=== PATIENT | female | born 1955 | race Caucasian/White ===

== ENCOUNTER 2017-10-23 19:25 | Emergency (ER) | payer OTHER ==
[2017-10-23 21:34] LABS: Absolute Lymphocytes (CBC) 3.3 K/uL (0.7-4.9); Absolute Monocytes 1.1 K/uL (0.1-1.3); Absolute Neutrophil 5.8 K/uL (1.8-8.0); Basophils % 0.9 % (0-1.3); Eosinophils % 2.2 % (0-4.4); Hematocrit 35.8 % (36.0-45.0); Lymphocytes % 31.8 % (15.3-44.8); MCH 26.8 pg (27.0-35.0); MCV 80.2 fL (80-100); MPV 9.8 fL (7.6-11.3); Monocytes % 10.2 % (3.3-12.3); RBC Red Blood Cell Count 4.47 M/uL (3.86-4.86)
[2017-10-23 21:40] LABS: Protime INR 0.92
[2017-10-23 21:42] LABS: Urine Blood NEGATIVE (NEG); Urine Glucose NEGATIVE (NEG); Urine Protein NEGATIVE (NEG); Urine Specific Gravity 1.025 (1.005-1.030)
[2017-10-23 21:55] LABS: ALT/SGPT 20 U/L (12-78); AST/SGOT 16 U/L (15-37); Albumin 4.3 g/dL (3.4-5.0); Alkaline Phosphatase 128 U/L (45-117); BUN Blood Urea Nitrogen 14 mg/dL (7-18); Bicarbonate 31 mmol/L (21-32); Bilirubin Direct < 0.1 mg/dL (0-0.2); Bilirubin Total 0.2 mg/dL (0.2-1.0); Glucose Level 92 mg/dL (74-106); Magnesium 2.7 mg/dL (1.8-2.4); NT PRO-BNP 117 pg/mL (<125); Potassium 3.9 mmol/L (3.5-5.1); Protein, Total 7.9 g/dL (6.4-8.2); Sodium Level 141 mmol/L (136-145)
--- NOTE | 2017-10-23 22:08 | RAD REPORT ---
EXAM DESCRIPTION: VAS - Extremity Venous Uni Ltd - 10/23/2017 9:54 pm CLINICAL HISTORY: PAIN Leg swelling and edema. COMPARISON: No comparisons FINDINGS: Right lower extremity venous system was interrogated with Doppler technique. Normal flow, compressibility and augmentation was noted. There is no DVT present. IMPRESSION: No evidence of right lower extremity deep venous thrombosis.
--- NOTE | 2017-10-23 22:09 | RAD REPORT ---
EXAM DESCRIPTION: VAS - Lower Extremity Arterial Bilat - 10/23/2017 9:54 pm CLINICAL HISTORY: leg pain, numbness COMPARISON: No comparisons TECHNIQUE: Bilateral lower extremity arterial Doppler examination was performed with jose shen FINDINGS: Triphasic and biphasic waveforms are seen throughout both lower extremity arterial systems to the lev el of the dorsalis pedis arteries. No significant flow abnormality or vessel occlusion seen. IMPRESSION: No evidence of significant peripheral vascular disease.
--- NOTE | 2017-10-23 22:13 | RAD REPORT ---
EXAM DESCRIPTION: RAD - Chest Pa And Lat (2 Views) - 10/23/2017 10:03 pm CLINICAL HISTORY: SOB Chest pain. COMPARISON: No comparisons TECHNIQUE: PA and lateral views of the chest were obtained. FINDINGS: The lungs are hyperexpanded compatible with COPD. The heart is upper limit of normal in si ze. Old right-sided rib fractures noted. No acute fracture evident. Cholecystectomy clips seen. IMPRESSION: COPD without acute process identified.
--- NOTE | 2017-10-23 23:16 | ER ---
Nurse's Notes [facility] Name: Brea England Age: 62 yrs Sex: Female : 1955 Arrival Date: 10/23/2017 Time: 19:27 Bed 4 Private MD: Rosie Tam H Diagnosis: Right Leg Pain And Swelling;Dizziness;COPD Presentation: 10/23 19:40 Presenting complaint: Patient states: "I fell a year ago and had a knot on my leg lk1 (right), the knot has moved and I am having numbness and swelling on my leg for about a month now.". Transition of care: patient was not received from another setting of care. Onset of symptoms was September 19, 2017. Risk Assessment: Do you want to hurt yourself or someone else? Patient reports no desire to harm self or others. Initial Sepsis Screen: Does the patient meet any 2 criteria? No. Patient's initial sepsis screen is negative. Does the patient have a suspected source of infection? No. Patient's initial sepsis screen is negative. Care prior to arrival: None. 19:40 Method Of Arrival: Ambulatory lk1 19:40 Acuity: MARCOS 4 lk1 Historical: - Allergies: 19:46 Sulfa (Sulfonamide Antibiotics); lk1 - PMHx: 19:46 Sleep Apnea; Hypertension; MS; cancer- thyroid; Depression; lk1 - PSHx: 19:46 sinus surgery; Hysterectomy; Cholecystectomy; right hip; lk1 - Immunization history:: Adult Immunizations up to date. - Social history:: Smoking status: Patient uses tobacco products, smokes two packs cigarettes per day. - Ebola Screening: : No symptoms or risks identified at this time. - Family history:: not pertinent. - Hospitalizations: : No recent hospitalization is reported. Screenin:14 Abuse screen: Denies threats or abuse. Nutritional screening: No deficits noted. ea Tuberculosis screening: No symptoms or risk factors identified. Fall Risk None identified. Assessment: 21:23 General: Appears in no apparent distress. Behavior is calm, cooperative, appropriate ea for age. Pain: Pain: Complains of pain in right leg Pain currently is 8 out of 10 on a pain scale. Quality of pain is described as aching. 21:23 Neuro: Level of Consciousness is awake, alert, obeys commands, Oriented to person, ea place, time, situation. Cardiovascular: Patient's skin is warm and dry. Respiratory: Airway is patent Respiratory effort is even, unlabored, Respiratory pattern is regular, symmetrical. GI: No signs and/or symptoms were reported involving the gastrointestinal system. : No signs and/or symptoms were reported regarding the genitourinary system. EENT: No signs and/or symptoms were reported regarding the EENT system. Derm: Skin is pink, warm \\T\\ dry. redness and swelling noted to right lower leg. Musculoskeletal: Circulation, motion, and sensation intact. 22:24 Reassessment: Patient and/or family updated on plan of care and expected duration. Pain ea level reassessed. Patient is alert, oriented x 3, equal unlabored respirations, skin warm/dry/pink. 23:27 Reassessment: Patient and/or family updated on plan of care and expected duration. Pain ea level reassessed. Patient is alert, oriented x 3, equal unlabored respirations, skin warm/dry/pink. Discharge instructions given to patient, verbalized the understanding of instruction. Vital Signs: 19:46 BP 172 / 99; Pulse 91; Resp 16; Temp 98.0(TE); Pulse Ox 99% on R/A; Weight 61.23 kg lk1 (R); Height 5 ft. 2 in. (157.48 cm) (R); Pain 7/10; 21:39 BP 191 / 90; Pulse 85; Resp 18; Pulse Ox 99% on R/A; ea 23:28 BP 178 / 80; Pulse 80; Resp 18; Temp 98(O); Pulse Ox 99% on R/A; Pain 0/10; ea 19:46 Body Mass Index 24.69 (61.23 kg, 157.48 cm) lk1 ED Course: 19:27 Patient arrived in ED. am2 19:27 Rosie Tam DO is Private Physician. am2 19:44 Triage completed. lk1 19:49 Arm band placed on right wrist. lk1 20:32 Regan Wiley MD is Attending Physician. wa 20:59 Savage العلي, ISIDRA is Primary Nurse. fu 21:10 Initial lab(s) drawn, by nh, sent to lab. Inserted saline lock: 20 gauge in right cc antecubital area, using aseptic technique. Blood collected. 21:14 Patient has correct armband on for positive identification. ea 21:15 Urine collected: clean catch specimen, clear. cc 21:48 Ultrasound completed. Patient tolerated well. lc3 21:48 Lower Extremity Arterial Bilat US In Process Unspecified. EDMS 21:48 Extremity Venous Uni Ltd US In Process Unspecified. EDMS 21:56 XRAY Chest Pa And Lat (2 Views) In Process Unspecified. EDMS 22:00 X-ray completed. Patient tolerated procedure well. bb2 22:00 Patient moved back from radiology. bb2 23:14 Josue Davila MD is Referral Physician. wa 23:27 No provider procedures requiring assistance completed. IV discontinued, intact, ea bleeding controlled, No redness/swelling at site. Pressure dressing applied. Administered Medications: No medications were administered Outcome: 23:15 Discharge ordered by . wa 23:28 Discharged to home ambulatory, with family. ea 23:28 Condition: improved 23:28 Discharge instructions given to patient, Instructed on discharge instructions, follow up and referral plans. medication usage, Demonstrated understanding of instructions, follow-up care, medications, Prescriptions given X 1. 23:29 Patient left the ED. ea Signatures: Dispatcher [employer] EDMS Pinky Wilkes cc Tenzin Moore Leah, RN RN [email or web address] Deidre Woods Elena, RN RN ea Appiah, William, MD MD wa Umadhay, Felix, RN Dhara Fried bb2 Corrections: (The following items were deleted from the chart) 21:43 21:23 General: Appears in no apparent distress. Behavior is calm, cooperative, ea appropriate for age, ea 21:43 21:23 Pain: ea ea
--- NOTE | 2017-10-23 23:16 | EDPHYS ---
Physician Documentation [facility] Name: Brea England Age: 62 yrs Sex: Female : 1955 Arrival Date: 10/23/2017 Time: 19:27 Bed 4 Private MD: Rosie Tam H ED Physician Regan Wiley HPI: 10/24 20:54 This 62 yrs old Female presents to ER via Ambulatory with complaints of Leg wa Pain, Leg Swelling, Dizziness. 20:54 The patient presents with pain, that is chronic, swelling, tenderness, R frontal thigh. wa states h/o remote injury to R thigh. now feels a "knot' in the front part of the thigh. also pain in the calf and leg with intermittent numbness. worse when walks. other c/o dizziness the past couple days. The complaints affect the right quadriceps. Context: The problem was sustained denies acute injury. remote injury as explained above. Onset: The symptoms/episode began/occurred just prior to arrival, 3 month(s) ago. Modifying factors: The symptoms are alleviated by nothing. the symptoms are aggravated by weight bearing, walking. Associated signs and symptoms: Pertinent positives: calf tenderness, numbness, of the right leg, Pertinent negatives fever. Treatment prior to arrival includes: no previous treatment. Severity of symptoms: At their worst the symptoms were moderate, in the emergency department the symptoms are unchanged. The patient has not experienced similar symptoms in the past. The patient has not recently seen a physician. Historical: - Allergies: 10/23 19:46 Sulfa (Sulfonamide Antibiotics); lk1 - PMHx: 19:46 Sleep Apnea; Hypertension; MS; cancer- thyroid; Depression; lk1 - PSHx: 19:46 sinus surgery; Hysterectomy; Cholecystectomy; right hip; lk1 - Immunization history:: Adult Immunizations up to date. - Social history:: Smoking status: Patient uses tobacco products, smokes two packs cigarettes per day. - Ebola Screening: : No symptoms or risks identified at this time. - Family history:: not pertinent. - Hospitalizations: : No recent hospitalization is reported. ROS: 10/24 20:59 Constitutional: Negative for fever, chills, and weight loss, Eyes: Negative for injury, wa pain, redness, and discharge, ENT: Negative for injury, pain, and discharge, Neck: Negative for injury, pain, and swelling, Cardiovascular: Negative for chest pain, palpitations, and edema, Respiratory: Negative for shortness of breath, cough, wheezing, and pleuritic chest pain, Abdomen/GI: Negative for abdominal pain, nausea, vomiting, diarrhea, and constipation, Back: Negative for injury and pain, : Negative for injury, bleeding, discharge, and swelling, Skin: Negative for injury, rash, and discoloration, Psych: Negative for depression, anxiety, suicide ideation, homicidal ideation, and hallucinations. MS/extremity: Positive for pain, swelling, tenderness, of the right leg, Negative for injury or acute deformity. All other systems are negative. 20:59 Neuro: Positive for dizziness, Negative for altered mental status, headache. wa Exam: 20:59 Constitutional: This is a well developed, well nourished patient who is awake, alert, wa and in no acute distress. Head/Face: Normocephalic, atraumatic. Eyes: Pupils equal round and reactive to light, extra-ocular motions intact. Lids and lashes normal. Conjunctiva and sclera are non-icteric and not injected. Cornea within normal limits. Periorbital areas with no swelling, redness, or edema. ENT: Nares patent. No nasal discharge, no septal abnormalities noted. Tympanic membranes are normal and external auditory canals are clear. Oropharynx with no redness, swelling, or masses, exudates, or evidence of obstruction, uvula midline. Mucous membranes moist. Neck: Trachea midline, no thyromegaly or masses palpated, and no cervical lymphadenopathy. Supple, full range of motion without nuchal rigidity, or vertebral point tenderness. No Meningismus. Chest/axilla: Normal chest wall appearance and motion. Nontender with no deformity. No lesions are appreciated. Cardiovascular: Regular rate and rhythm with a normal S1 and S2. No gallops, murmurs, or rubs. Normal PMI, no JVD. No pulse deficits. Respiratory: Lungs have equal breath sounds bilaterally, clear to auscultation and percussion. No rales, rhonchi or wheezes noted. No increased work of breathing, no retractions or nasal flaring. Abdomen/GI: Soft, non-tender, with normal bowel sounds. No distension or tympany. No guarding or rebound. No evidence of tenderness throughout. Back: No spinal tenderness. No costovertebral tenderness. Full range of motion. Skin: Warm, dry with normal turgor. Normal color with no rashes, no lesions, and no evidence of cellulitis. Neuro: Awake and alert, GCS 15, oriented to person, place, time, and situation. Cranial nerves II-XII grossly intact. Motor strength 5/5 in all extremities. Sensory grossly intact. Cerebellar exam normal. Normal gait. 20:59 Musculoskeletal/extremity: Extremities: mild tenderness R calf. frontal thigh noted with well circumscribed area of contusion within the muscle. Vital Signs: 10/23 19:46 BP 172 / 99; Pulse 91; Resp 16; Temp 98.0(TE); Pulse Ox 99% on R/A; Weight 61.23 kg lk1 (R); Height 5 ft. 2 in. (157.48 cm) (R); Pain 7/10; 21:39 BP 191 / 90; Pulse 85; Resp 18; Pulse Ox 99% on R/A; ea 23:28 BP 178 / 80; Pulse 80; Resp 18; Temp 98(O); Pulse Ox 99% on R/A; Pain 0/10; ea 19:46 Body Mass Index 24.69 (61.23 kg, 157.48 cm) lk1 MDM: 20:32 Patient medically screened. 10/24 21:01 Differential diagnosis: will r/o DVT. pt is a smoker. will r/o arterial insufficiency. la cardiac work up. reassess. Data reviewed: vital signs, nurses notes. Test interpretation: by ED physician or midlevel provider: CXR noted for COPD. venous and arterial doppler studies negative. Response to treatment: the patient's symptoms have markedly improved after treatment. 10/23 20:52 Order name: BMP 10/23 20:52 Order name: CBC with Diff; Complete Time: 22:17 10/23 20:52 Order name: D-Dimer; Complete Time: 22:17 10/23 20:52 Order name: Hepatic Function 10/23 20:52 Order name: Magnesium; Complete Time: 22:17 10/23 20:52 Order name: NT PRO-BNP 10/23 20:52 Order name: XRAY Chest Pa And Lat (2 Views); Complete Time: 22:17 10/23 20:52 Order name: PT-INR; Complete Time: 22:18 la 10/23 20:52 Order name: Troponin (emerg Dept Use Only); Complete Time: 22:18 la 10/23 20:53 Order name: Basic Metabolic Panel; Complete Time: 22:17 [facility] 10/23 20:53 Order name: Liver (Hepatic) Function; Complete Time: 22:17 [facility] 10/23 20:53 Order name: NT PRO-BNP; Complete Time: 22:18 [facility] 10/23 20:55 Order name: Lower Extremity Arterial Bilat US; Complete Time: 22:18 la 10/23 21:22 Order name: Urine Dipstick--Ancillary (enter results); Complete Time: 22:17 [facility] 10/23 20:52 Order name: EKG; Complete Time: 20:53 la 10/23 20:52 Order name: Cardiac monitoring; Complete Time: 21: la 10/23 20:52 Order name: EKG - Nurse/Tech; Complete Time: 22:33 la 10/23 20:52 Order name: IV Saline Lock; Complete Time: : la 10/23 20:52 Order name: Labs collected and sent; Complete Time: 21: la 10/23 20:52 Order name: O2 Per Protocol; Complete Time: 21: la 10/23 20:52 Order name: O2 Sat Monitoring; Complete Time: : la 10/23 20:52 Order name: Urine Dipstick-Ancillary (obtain specimen); Complete Time: 21: la 10/23 20:55 Order name: Extremity Venous Uni Ltd US; Complete Time: 22:18 la Administered Medications: No medications were administered Disposition: 10/23/17 23:15 Discharged to Home. Impression: Right Leg Pain And Swelling, Dizziness, COPD. - Condition is Stable. - Discharge Instructions: Shortness of Breath, [id number], Dizziness, [id number]. - Prescriptions for Albuterol Sulfate 90 mcg/actuation - inhale 1-2 puff by INHALATION route every 4-6 hours; 1 Inhaler. - Medication Reconciliation Form, Thank You Letter, Antibiotic Education, Prescription Opioid Use form. - Follow up: Josue Davila MD; When: 2 - 3 days; Reason: Re-evaluation by your physician. - Problem is new. - Symptoms have improved. - Notes: use inhaler as needed for shortness of breath. see your doctor for further evaluation in 2-3 days. quit smoking as you have developed COPD. Smoking may worsen your breathing Signatures: Dispatcher [employer] Mariposa Lainez, RN RN lk1 Esperanza Olmos RN RN ea Regan Wiley MD MD wa Corrections: (The following items were deleted from the chart) 10/23 23:29 23:15 10/23/2017 23:15 Discharged to Home. Impression: Right Leg Pain And Swelling; ea Dizziness; COPD. Condition is Stable. Forms are Medication Reconciliation Form, Thank You Letter, Antibiotic Education, Prescription Opioid Use. Follow up: A Davila; When: 2 - 3 days; Reason: Re-evaluation by your physician. Problem is new. Symptoms have improved. owen
--- NOTE | 2017-10-24 09:23 | EKG ---
Test Date: 2017-10-23 Test Time: 22:11:02 [employer] Helper: THERESE MEASUREMENT RESULTS: Intervals: Rate: 81 [place]: 144 QRSD: 84 QT: 368 QTc: 427 [place]: P: 73 [place]: 144 QRS: 65 T: 42 INTERPRETIVE STATEMENTS: Normal sinus rhythm Normal ECG Electronically Signed On 10-24-17 09:22:54 CDT by Alex Strange
== END 2017-10-23 23:29 | disposition home or self-care (01) ==
LOC: ER 19:25
DX: M79.604 Pain in right leg (principal); J44.9 Chronic obstructive pulmonary disease, unspecified; F17.210 Nicotine dependence, cigarettes, uncomplicated; I10 Essential (primary) hypertension; Z88.2 Allergy status to sulfonamides
CPT/HCPCS: 36415; 71046; 80048; 80076; 81003; 83735; 83880; 84484; 85025; 85379; 85610; 93005; 93925; 93971; 99284

== ENCOUNTER 2018-06-28 20:40 | Emergency (ER) | payer OTHER ==
--- NOTE | 2018-06-28 22:01 | EDPHYS ---
Physician Documentation [facility] Name: Brea England Age: 62 yrs Sex: Female : 1955 Arrival Date: 06/28/2018 Time: 20:43 Bed 18 Private MD: ED Physician Curry Solis HPI: 06/28 21:54 This 62 yrs old Female presents to ER via Ambulatory with complaints of carlos Weakness. 21:54 The patient presents to the emergency department with weakness of the right upper carlos extremity, right lower extremity, right side of the face, that is mild. Onset: The symptoms/episode began/occurred 22 hour(s) ago. Context: occurred at home. Associated signs and symptoms: The patient has no apparent associated signs or symptoms. Severity of symptoms: At their worst the symptoms were moderate this morning. Patient's baseline: Neuro: alert and fully oriented. The patient has not experienced similar symptoms in the past. Historical: - Allergies: 20:47 Sulfa (Sulfonamide Antibiotics); la1 - PMHx: 20:47 cancer- thyroid; Depression; Hypertension; MS; Sleep Apnea; Asthma; la1 22:50 COPD; rr5 - Immunization history:: Adult Immunizations up to date. - Social history:: Smoking status: Patient/guardian denies using tobacco. - Ebola Screening: : No symptoms or risks identified at this time. - Family history:: not pertinent. ROS: 21:54 Constitutional: Negative for fever, chills, and weight loss, Eyes: Negative for injury, carlos pain, redness, and discharge, ENT: Negative for injury, pain, and discharge, Neck: Negative for injury, pain, and swelling, Cardiovascular: Negative for chest pain, palpitations, and edema, Respiratory: Negative for shortness of breath, cough, wheezing, and pleuritic chest pain, Abdomen/GI: Negative for abdominal pain, nausea, vomiting, diarrhea, and constipation, Back: Negative for injury and pain, : Negative for injury, bleeding, discharge, and swelling, MS/Extremity: Negative for injury and deformity, Skin: Negative for injury, rash, and discoloration, Psych: Negative for depression, anxiety, suicide ideation, homicidal ideation, and hallucinations, Allergy/Immunology: Negative for hives, rash, and allergies, Endocrine: Negative for neck swelling, polydipsia, polyuria, polyphagia, and marked weight changes, Hematologic/Lymphatic: Negative for swollen nodes, abnormal bleeding, and unusual bruising. 21:54 Neuro: Positive for dizziness, gait disturbance, weakness, of the face, right arm and right leg. Exam: 21:54 Constitutional: This is a well developed, well nourished patient who is awake, alert, carlos and in no acute distress. Head/Face: Normocephalic, atraumatic. Eyes: Pupils equal round and reactive to light, extra-ocular motions intact. Lids and lashes normal. Conjunctiva and sclera are non-icteric and not injected. Cornea within normal limits. Periorbital areas with no swelling, redness, or edema. ENT: Nares patent. No nasal discharge, no septal abnormalities noted. Tympanic membranes are normal and external auditory canals are clear. Oropharynx with no redness, swelling, or masses, exudates, or evidence of obstruction, uvula midline. Mucous membranes moist. Neck: Trachea midline, no thyromegaly or masses palpated, and no cervical lymphadenopathy. Supple, full range of motion without nuchal rigidity, or vertebral point tenderness. No Meningismus. Chest/axilla: Normal chest wall appearance and motion. Nontender with no deformity. No lesions are appreciated. Cardiovascular: Regular rate and rhythm with a normal S1 and S2. No gallops, murmurs, or rubs. Normal PMI, no JVD. No pulse deficits. Respiratory: Lungs have equal breath sounds bilaterally, clear to auscultation and percussion. No rales, rhonchi or wheezes noted. No increased work of breathing, no retractions or nasal flaring. Abdomen/GI: Soft, non-tender, with normal bowel sounds. No distension or tympany. No guarding or rebound. No evidence of tenderness throughout. Back: No spinal tenderness. No costovertebral tenderness. Full range of motion. Female : Normal external genitalia. Skin: Warm, dry with normal turgor. Normal color with no rashes, no lesions, and no evidence of cellulitis. MS/ Extremity: Pulses equal, no cyanosis. Neurovascular intact. Full, normal range of motion. Psych: Awake, alert, with orientation to person, place and time. Behavior, mood, and affect are within normal limits. 21:54 Neuro: Orientation: is normal, appropriate for stated age, no acute changes, Mentation: is normal, appropriate for stated age, no acute changes, Memory: is normal, appropriate for stated age, no acute changes, Cranial nerves: grossly normal, is grossly normal based on the patient's age, no acute changes, Cerebellar function: dysmetria is noted on the right, the patient is unable to track right heel to left ortiz, Motor: strength is 4/5 in the right arm and right leg, Gait: not tested. Deep tendon reflexes are normal, seizure activity, is not displayed by the patient. Vital Signs: 20:48 Pulse 95; Resp 18; Temp 98.6; Pulse Ox 98% on R/A; Weight 61.23 kg; Height 5 ft. 2 in. la1 (157.48 cm); 20:49 BP 152 / 76; la1 21:35 BP 175 / 110; Pulse 90; Resp 16; Pulse Ox 98% ; rr5 22:35 BP 218 / 102; Pulse 96; Resp 17; Pulse Ox 99% ; rr5 22:50 BP 210 / 105; Pulse 95; Resp 17; Pulse Ox 99% ; rr5 23:00 BP 196 / 110; Pulse 99; Resp 17; Pulse Ox 98% ; rr5 23:30 BP 189 / 95; Pulse 83; Resp 16; Pulse Ox 99% ; rr5 03/04 00:00 BP 206 / 93; Pulse 88; Resp 19; Pulse Ox 100% ; rr5 00:30 BP 191 / 90; Pulse 81; Resp 16; Pulse Ox 98% ; rr5 01:00 BP 188 / 95; Pulse 86; Resp 17; Pulse Ox 100% ; rr5 06/28 20:48 Body Mass Index 24.69 (61.23 kg, 157.48 cm) hi1 06/28 22:35 ED provider aware rr5 NIH Stroke Scale Scores: 22:01 NIHSS Score: 2 carlos Chase Coma Score: 21:35 Eye Response: spontaneous(4). Verbal Response: oriented(5). Motor Response: obeys rr5 commands(6). Total: 15. MDM: 20:53 Patient medically screened. [facility] 21:54 Data reviewed: vital signs, nurses notes, lab test result(s), EKG, radiologic studies, [facility] CT scan, plain films. 06/28 21:53 Order name: Basic Metabolic Panel; Complete Time: 22:54 [facility] 06/28 21:53 Order name: CBC with Diff; Complete Time: 22:54 [facility] 06/28 21:53 Order name: LFT's; Complete Time: 22:54 [facility] 06/28 21:53 Order name: Magnesium; Complete Time: 22:54 [facility] 06/28 21:53 Order name: NT PRO-BNP; Complete Time: 22:54 [facility] 06/28 21:53 Order name: PT-INR; Complete Time: 22:54 [facility] 06/28 21:53 Order name: Troponin (emerg Dept Use Only); Complete Time: 22:54 [facility] 06/28 21:53 Order name: XRAY Chest (1 view) [facility] 06/28 21:53 Order name: Urine Culture [facility] 06/28 21:53 Order name: CT Stroke Brain w/o Contrast [facility] 06/28 21:53 Order name: Sed Rate; Complete Time: 22:54 [facility] 06/28 21:53 Order name: CRP; Complete Time: 22:54 [facility] 06/28 22:24 Order name: CT Head Angio [facility] 06/28 22:40 Order name: Urine Dipstick--Ancillary (enter results); Complete Time: 22:54 ok 06/28 21:53 Order name: EKG; Complete Time: 21:54 [facility] 06/28 21:53 Order name: Cardiac monitoring; Complete Time: 22:16 [facility] 06/28 21:53 Order name: EKG - Nurse/Tech; Complete Time: 22:16 [facility] 06/28 21:53 Order name: IV Saline Lock; Complete Time: 22:16 [facility] 06/28 21:53 Order name: Labs collected and sent; Complete Time: 22:16 [facility] 06/28 21:53 Order name: O2 Per Protocol; Complete Time: 22:16 [facility] 06/28 21:53 Order name: O2 Sat Monitoring; Complete Time: 22:16 [facility] 06/28 21:53 Order name: Urine Dipstick-Ancillary (obtain specimen); Complete Time: 22:52 [facility] Administered Medications: 22:25 Drug: NS 0.9% 1000 ml Route: IV; Rate: 1 bolus; Site: left forearm; rr5 06/29 00:50 Follow up: Response: No adverse reaction; IV Status: Completed infusion; IV Intake: rr5 1000ml 06/28 22:25 Drug: foLIC Acid 1 mg Route: IVPB; Site: left forearm; rr5 06/29 00:50 Follow up: Response: No adverse reaction; IV Status: Completed infusion rr5 06/28 23:05 Drug: Aspirin Chewable Tablet 324 mg Route: PO; rr5 06/29 00:50 Follow up: Response: No adverse reaction rr5 Point of Care Testing: Blood Glucose: 06/28 22:05 Blood Glucose: 98 mg/dL; rr5 Ranges: Critical Glucose Levels:Adult <50 mg/dl or >400 mg/dl <40 mg/dl or >180 mg/dl Disposition: 06/28/18 22:00 Transfer ordered to [facility]. Diagnosis are Cerebral infarction, Weakness - right arm and leg, Multiple sclerosis, Tobacco abuse counseling, Tobacco use, Anemia, unspecified. - Reason for transfer: Higher level of care. - Accepting physician is to neuro tele. - Condition is Fair. - Problem is new. - Symptoms have improved. NIH Stroke Scale - NIH Stroke Score Date: 06/28/2018 Time: 22:01 Total Score = 2 1a. Level of Consciousness (LOC) - 0(Alert) 1b. Level of Consciousness (LOC) (Year \T\ Age) - 0(Both) 1c. LOC Commands (Open \T\ Closes Eyes/Crm Analyst) - 0(Both) 2. Best Gaze (Lateral Gaze Paresis) - 0(Normal) 3. Visual Field Loss - 0(No visual loss) 4. Facial Palsy - 0(Normal) 5a. Left Arm: Motor (10-second hold) - 0(No drift) 5b. Right Arm: Motor (10-second hold) - 0(No drift) 6a. Left Leg: Motor (5-second hold - always test supine) - 0(No drift) 6b. Right Leg: Motor (5-second hold - always test supine) - 0(No drift) 7. Limb Ataxia (finger/nose \T\ heel/ortiz - test with eyes open) - 2(Present in two limbs) 8. Sensory Loss (pinprick arms/legs/face) - 0(Normal) 9. Best Language: Aphasia (description/naming/reading) - 0(No aphasia) 10. Dysarthria (speech clarity - read or repeat words) - 0(Normal) 11. Extinction and Inattention (visual/tactile/auditory/spatial/personal) - 0(No abnormality) Initials: carlos Signatures: Dispatcher [employer] Curry Hallman MD MD cha Attema, Lee, RN RN la1 Horacio Ga, RN RN rr5 Corrections: (The following items were deleted from the chart) 22:06/28/2018 22:[address] [facility]. [facility] Diagnosis is Cerebral infarction; Weakness - right arm and leg. Reason for transfer: Higher level of care. Accepting physician is to neuro tele. Condition is Fair. Problem is new. Symptoms have improved. [facility] : 22:06/28/2018 22:[address] [facility]. [facility] Diagnosis is Cerebral infarction; Weakness - right arm and leg; Multiple sclerosis. Reason for transfer: Higher level of care. Accepting physician is to neuro tele. Condition is Fair. Problem is new. Symptoms have improved. [facility] : 22:06/28/2018 22:00 Transfer ordered to [facility]. Diagnosis is Cerebral infarction; Weakness - right arm and leg; Multiple sclerosis. Reason for transfer: Higher level of care. Accepting physician is to neuro tele. Condition is Fair. Problem is new. Symptoms have improved. [facility] 06/29 00:01 06/28 22:13 06/28/2018 22:00 Transfer ordered to [facility]. Diagnosis is Cerebral infarction; Weakness - right arm and leg; Multiple sclerosis; Tobacco abuse counseling; Tobacco use. Reason for transfer: Higher level of care. Accepting physician is to neuro tele. Condition is Fair. Problem is new. Symptoms have improved. [facility] 06/29 01:16 00:01 06/28/2018 22:00 Transfer ordered to [address] Diagnosis is Cerebral infarction; Weakness - right arm and leg; Multiple sclerosis; Tobacco abuse counseling; Tobacco use; Anemia, unspecified. Reason for transfer: Higher level of care. Accepting physician is to neuro tele. Condition is Fair. Problem is new. Symptoms have improved. [facility]
--- NOTE | 2018-06-28 22:01 | ER ---
Nurse's Notes [facility] Name: Brea England Age: 62 yrs Sex: Female : 1955 Arrival Date: 06/28/2018 Time: 20:43 Bed 18 Private MD: Diagnosis: Cerebral infarction;Weakness-right arm and leg;Multiple sclerosis;Tobacco abuse counseling;Tobacco use;Anemia, unspecified Presentation: 06/28 20:44 Presenting complaint: Patient states: I went to bad at midnight on 06/27/18 and woke up la1 at 1000 today (06/28) and could barely move my right leg, its like it is real heavy and and I have fallen a few times today because of it. I feel dizzy, nauseous that started this morning right now. Pt negative for arm drift in triage. Transition of care: patient was not received from another setting of care. An acute neurological deficit is present. Pre-hospital glucose is not applicable to this patient. Onset of symptoms was June 28, 2018 at 00:00. Risk Assessment: Do you want to hurt yourself or someone else? Patient reports no desire to harm self or others. Initial Sepsis Screen: Does the patient meet any 2 criteria? No. Patient's initial sepsis screen is negative. Does the patient have a suspected source of infection? No. Patient's initial sepsis screen is negative. Care prior to arrival: None. 20:44 Method Of Arrival: Ambulatory la1 20:44 Acuity: MARCOS 3 la1 Triage Assessment: 21:35 The onset of the patients symptoms was more than six hours ago. rr5 21:35 General: Appears in no apparent distress. comfortable, Behavior is calm, cooperative, rr5 appropriate for age. Stroke Activation: Symptom onset > 6 hours Physician: Stroke Attending; Name: ; Notified At: ; Arrived At: Physician: Chief Stroke Resident; Name: ; Notified At: ; Arrived At: Physician: Stroke Resident; Name: ; Notified At: ; Arrived At: Physician: ED Attending; Name: ; Notified At: ; Arrived At: Physician: ED Resident; Name: ; Notified At: ; Arrived At: Historical: - Allergies: 20:47 Sulfa (Sulfonamide Antibiotics); la1 - PMHx: 20:47 cancer- thyroid; Depression; Hypertension; MS; Sleep Apnea; Asthma; la1 22:50 COPD; rr5 - Immunization history:: Adult Immunizations up to date. - Social history:: Smoking status: Patient/guardian denies using tobacco. - Ebola Screening: : No symptoms or risks identified at this time. - Family history:: not pertinent. Screenin:48 VAN Screening: Arm Drift: Patient shows no arm weakness. Patient is VAN negative. la1 22:08 Abuse screen: Denies threats or abuse. Denies injuries from another. Nutritional rr5 screening: No deficits noted. Tuberculosis screening: No symptoms or risk factors identified. Fall Risk Fall in past 12 months (25 points). IV access (20 points). Total Horvath Fall Scale indicates Low Risk Score (25-44 pts). Fall prevention measures have been instituted. Side Rails Up X 2 Frequent Obs/Assesments occuring Family Present and informed to notify staff if they need to leave bedside As available Patient and Family Educated on Fall Prevention Program and strategies. Assessment: 21:35 General: Appears in no apparent distress. comfortable, Behavior is calm, cooperative, rr5 appropriate for age. Pain: Denies pain. Neuro: Level of Consciousness is awake, alert, obeys commands, Oriented to person, place, time, situation, Appropriate for age Falsework Builder are equal bilaterally Weakness in right leg(s) Speech is normal, Facial symmetry appears normal, Pupils are PERRLA, Reports numbness in right leg weakness in right leg. Cardiovascular: Capillary refill < 3 seconds Patient's skin is warm and dry. Respiratory: Airway is patent Respiratory effort is even, unlabored, Respiratory pattern is regular, symmetrical. GI: No signs and/or symptoms were reported involving the gastrointestinal system. : No signs and/or symptoms were reported regarding the genitourinary system. EENT: No signs and/or symptoms were reported regarding the EENT system. Derm: Skin is intact, Skin temperature is warm. Musculoskeletal: Capillary refill < 3 seconds, Range of motion: limited in right knee and right ankle. 21:35 VAN Scoring: Arm Drift: Patients demonstrates NO arm weakness. Patient is VAN Negative. rr5 22:00 Reassessment: code stroke alerted. rr5 22:04 Reassessment: code stroke alert cancelled. rr5 22:15 Patient has been NPO before screening. The patient is alert, and able to follow rr5 commands. The patient does not exhibit slurred or garbled speech. The patient is not exhibiting difficulty speaking. The patient does not exhibit difficulty understanding words. The patient is able to swallow own secretions with no drooling or need for suction. Patient tolerated one teaspoon of water. No drooling, immediate coughing, gurgling, or clearing of the throat was noted. The patient tolerated 90mL of water. No drooling, immediate coughing, gurgling, or clearing of the throat was noted. The patient passed the bedside swallow screening. Oral medications may be given as ordered. Contact Physician for further diet orders. 23:05 Reassessment: awaiting for ED provider. no complaints made. rr5 06/29 00:00 Reassessment: Patient appears in no apparent distress at this time. Patient is alert, rr5 oriented x 3, equal unlabored respirations, skin warm/dry/pink. explained by ED provider and agreed to be transfer. 00:30 Reassessment: Patient appears in no apparent distress at this time. awaiting for EMS rr5 provider. no complaints made. 01:10 Reassessment: endorsed to [facility] vitally stable. rr5 Vital Signs: 06/28 20:48 Pulse 95; Resp 18; Temp 98.6; Pulse Ox 98% on R/A; Weight 61.23 kg; Height 5 ft. 2 in. la1 (157.48 cm); 20:49 BP 152 / 76; la1 21:35 BP 175 / 110; Pulse 90; Resp 16; Pulse Ox 98% ; rr5 22:35 BP 218 / 102; Pulse 96; Resp 17; Pulse Ox 99% ; rr5 22:50 BP 210 / 105; Pulse 95; Resp 17; Pulse Ox 99% ; rr5 23:00 BP 196 / 110; Pulse 99; Resp 17; Pulse Ox 98% ; rr5 23:30 BP 189 / 95; Pulse 83; Resp 16; Pulse Ox 99% ; rr5 06/29 00:00 BP 206 / 93; Pulse 88; Resp 19; Pulse Ox 100% ; rr5 00:30 BP 191 / 90; Pulse 81; Resp 16; Pulse Ox 98% ; rr5 01:00 BP 188 / 95; Pulse 86; Resp 17; Pulse Ox 100% ; rr5 06/28 20:48 Body Mass Index 24.69 (61.23 kg, 157.48 cm) la1 06/28 22:35 ED provider aware rr5 Howell Coma Score: 21:35 Eye Response: spontaneous(4). Verbal Response: oriented(5). Motor Response: obeys rr5 commands(6). Total: 15. NIH Stroke Scale Scores: 22:01 NIHSS Score: 2 carlos ED Course: 20:43 Patient arrived in ED. la1 20:46 Triage completed. la1 20:47 Arm band placed on left wrist. la1 20:53 Curry Solis MD is Attending Physician. carlos 21:33 Horacio Ga RN is Primary Nurse. rr5 22:00 Patient has correct armband on for positive identification. Placed in gown. Bed in low rr5 position. Call light in reach. Side rails up X2. monitor tech on. Pulse ox on. NIBP on. 22:00 Inserted saline lock: 20 gauge in left forearm, using aseptic technique. Blood rr5 collected. 22:17 CT Stroke Brain w/o Contrast In Process Unspecified. EDMS 22:19 XRAY Chest (1 view) In Process Unspecified. EDMS 23:[address] via wheelchair. kw1 23:56 CT completed. Patient tolerated procedure well. Patient moved back from CT. kw1 0304 00:16 CT completed. Patient tolerated procedure well. Patient moved back from CT. kw1 00:17 CT Head Angio In Process Unspecified. EDMS 00:54 No provider procedures requiring assistance completed. Patient transferred, IV remains rr5 in place. intact. Administered Medications: 06/28 22:25 Drug: NS 0.9% 1000 ml Route: IV; Rate: 1 bolus; Site: left forearm; rr5 06/29 00:50 Follow up: Response: No adverse reaction; IV Status: Completed infusion; IV Intake: rr5 1000ml 06/28 22:25 Drug: foLIC Acid 1 mg Route: IVPB; Site: left forearm; rr5 06/29 00:50 Follow up: Response: No adverse reaction; IV Status: Completed infusion rr5 06/28 23:05 Drug: Aspirin Chewable Tablet 324 mg Route: PO; rr5 06/29 00:50 Follow up: Response: No adverse reaction rr5 Point of Care Testing: Blood Glucose: 06/28 22:05 Blood Glucose: 98 mg/dL; rr5 Ranges: Intake: 06/29 00:50 IV: 1000ml; Total: 1000ml. rr5 Outcome: 06/28 22:00 ER care complete, transfer ordered by MD. gonzalez 06/29 00:18 Transferred by ground EMS to [facility], Note: [place]. natalya white RN rr5 accepted the case. Condition: stable Instructed on the need for transfer. 01:16 Patient left the ED. rr5 NIH Stroke Scale - NIH Stroke Score Date: 06/28/2018 Time: 22:01 Total Score = 2 1a. Level of Consciousness (LOC) - 0(Alert) 1b. Level of Consciousness (LOC) (Year \T\ Age) - 0(Both) 1c. LOC Commands (Open \T\ Closes Eyes/Bean Viner) - 0(Both) 2. Best Gaze (Lateral Gaze Paresis) - 0(Normal) 3. Visual Field Loss - 0(No visual loss) 4. Facial Palsy - 0(Normal) 5a. Left Arm: Motor (10-second hold) - 0(No drift) 5b. Right Arm: Motor (10-second hold) - 0(No drift) 6a. Left Leg: Motor (5-second hold - always test supine) - 0(No drift) 6b. Right Leg: Motor (5-second hold - always test supine) - 0(No drift) 7. Limb Ataxia (finger/nose \T\ heel/ortiz - test with eyes open) - 2(Present in two limbs) 8. Sensory Loss (pinprick arms/legs/face) - 0(Normal) 9. Best Language: Aphasia (description/naming/reading) - 0(No aphasia) 10. Dysarthria (speech clarity - read or repeat words) - 0(Normal) 11. Extinction and Inattention (visual/tactile/auditory/spatial/personal) - 0(No abnormality) Initials: carlos Signatures: Dispatcher [employer] EDMS Curry Solis MD MD cha Attema, Lee, RN RN Kati Flynn Raymond, ISIDRA RN rr5 Corrections: (The following items were deleted from the chart) 06/28 22:27 22:08 Fall Risk IV access (20 points). Total Horvath Fall Scale indicates No Risk rr5 (0-24 pts). rr5
[2018-06-28 22:21] LABS: Absolute Lymphocytes (CBC) 2.9 K/uL (0.7-4.9); Absolute Monocytes 0.9 K/uL (0.1-1.3); Absolute Neutrophil 5.4 K/uL (1.8-8.0); Basophils % 0.8 % (0-1.3); Eosinophils % 1.6 % (0-4.4); Hematocrit 30.9 % (36.0-45.0); Lymphocytes % 30.4 % (15.3-44.8); MPV 8.6 fL (7.6-11.3); Monocytes % 9.4 % (3.3-12.3); Protime INR 1.03; RBC Red Blood Cell Count 4.22 M/uL (3.86-4.86)
[2018-06-28] MEDS ORDERED: NA CHLORIDE 0.9% 1,000 ML ONE (22:24)
[2018-06-28] MEDS ORDERED: FOLIC ACID 5 MG/ML VIAL ONE (22:24)
[2018-06-28 22:35] LABS: ALT/SGPT 15 U/L (12-78); AST/SGOT 15 U/L (15-37); Albumin 3.8 g/dL (3.4-5.0); Alkaline Phosphatase 153 U/L (45-117); BUN Blood Urea Nitrogen 14 mg/dL (7-18); Bicarbonate 27 mmol/L (21-32); Bilirubin Direct < 0.1 mg/dL (0-0.2); Bilirubin Total 0.3 mg/dL (0.2-1.0); C-Reactive Protein 5.58 mg/L (<3.00); Glucose Level 86 mg/dL (74-106); Magnesium 2.2 mg/dL (1.8-2.4); NT PRO-BNP 126 pg/mL (<125); Potassium 4.1 mmol/L (3.5-5.1); Sodium Level 140 mmol/L (136-145); Troponin (Emerg Dept Use Only) < 0.02 ng/mL (0.0-0.045)
[2018-06-28 22:53] LABS: Urine Blood NEGATIVE (NEG); Urine Glucose NEGATIVE (NEG); Urine Protein NEGATIVE (NEG)
[2018-06-28] MEDS ORDERED: ASPIRIN 81 MG CHEWABLE TABLET ONE (23:09)
--- NOTE | 2018-06-29 07:48 | RAD REPORT ---
EXAM DESCRIPTION: Becca Single View06/28/2018 10:21 pm CLINICAL HISTORY: Cough COMPARISON: September 2017 FINDINGS: Old right rib fractures are present. The lungs appear clear of acute infiltrate. The heart is normal size IMPRESSION: No acute abnormalities displayed
--- NOTE | 2018-06-29 09:09 | EKG ---
Test Date: 2018-06-28 Test Time: 22:02:16 Senior Analyst Programmer: [id number] MEASUREMENT RESULTS: Intervals: Rate: 89 OK: 146 QRSD: 84 QT: 358 QTc: 435 Odon: P: 62 OK: 146 QRS: 62 T: 37 INTERPRETIVE STATEMENTS: Normal sinus rhythm Nonspecific ST abnormality Abnormal ECG Compared to ECG 10/23/2017 22:11:02 ST (T wave) deviation now present Electronically Signed On 06-29-18 09:09:05 COTTONSEED MEAT PRESSER by Alex Strange
--- NOTE | 2018-06-29 12:48 | RAD REPORT ---
EXAM DESCRIPTION: CT - Ct Stroke Brain Wo Cont - 06/28/2018 10:40 pm EXAM DESCRIPTION: CT head without contrast. CLINICAL HISTORY: Dizziness, weakness COMPARISON: None Available. TECHNIQUE: Contiguous axial sections are obtained as per protocol. Sagittal and coronal reformations are submitted Automatic exposure control (AEC), mA and/or kV adjustment by patient size, and/or interatrial reconst ructive technique was used, per departmental dose optimization program, during the performance of the CT examination. FINDINGS: Ventricles, sulci and cisterns appear normal. Normal parker-white matter differentiation i s noted. No evidence of intra or extra-axial hemorrhage, hematoma, mass, mass effect or midline shift is noted. The posterior fossa structures appear normal. The bony calvarium appears intact. The soft tissues of the scalp appear unremarkable. Normal appearance of the orbits are noted. The paranasal sinuses and mastoids appear normal. IMPRESSION: Unremarkable non contrast enhanced CT examination of brain. If clinically ischemic CVA is suspected, MRI brain with diffusion-weighted images should be considere d. Electronically signed by: Dafne Akers MD 06/28/2018 10:27 PM CHRISTIAN SCIENCE PRACTITIONER Due to temporary technical issues with the PACS/Fluency reporting system, reports are being signed by the in house radiologist as a courtesy to ensure prompt reporting. The interpreting radiologist is f ully responsible for the content of the report. ADDENDUM #1 Note: Critical findings discussed with Dr. Solis's MONO Zapien, on 06/28/2018 10:31 PM CHRISTIAN SCIENCE PRACTITIONER over the phone. Readback performed. Electronically signed by: Dafne Akers MD 06/28/2018 10:31 PM CHRISTIAN SCIENCE PRACTITIONER End of Addendum EXAM DESCRIPTION: CT head without contrast. CLINICAL HISTORY: Dizziness, weakness COMPARISON: None Available. TECHNIQUE: Contiguous axial sections are obtained as per protocol. Sagittal and coronal reformations are submitted Automatic exposure control (AEC), mA and/or kV adjustment by patient size, and/or interatrial reconst ructive technique was used, per departmental dose optimization program, during the performance of the CT examination. FINDINGS: Ventricles, sulci and cisterns appear normal. Normal parker-white matter differentiation i s noted. No evidence of intra or extra-axial hemorrhage, hematoma, mass, mass effect or midline shift is noted. The posterior fossa structures appear normal. The bony calvarium appears intact. The soft tissues of the scalp appear unremarkable. Normal appearance of the orbits are noted. The paranasal sinuses and mastoids appear normal.
--- NOTE | 2018-06-29 13:34 | RAD REPORT ---
EXAM DESCRIPTION: CT - Head angio - 06/29/2018 3:38 am EXAM DESCRIPTION: Head angio CLINICAL HISTORY: 62 years Female Dizziness;Weakness COMPARISON: Prior CT scan of the brain performed on the same day. TECHNIQUE: CT angiogram of the brain was performed. Images were obtained in axial, sagittal, and cor onal planes. Intravenous contrast was administered. This exam was performed according to our departmental dose-optimization program which includes use of Automated Exposure Control, adjustment of the mA and/or kV according to patient size and/or use of i terative reconstruction technique. FINDINGS: Patent carotid siphons bilaterally. Patent anterior and middle cerebral arteries bilateral ly. Patent basilar and posterior cerebral arteries bilaterally. Patent superior cerebellar arteries bilat erally. Patent vertebral arteries bilaterally. Hypoplasia of right vertebral artery. No evidence for aneurysm, thrombus, or significant stenosis. No vascular malformation involving the visualized brain parenchyma. IMPRESSION: Study within normal limits. Intracerebral vasculature with no evidence for significant s tenosis or aneurysm. Electronically signed by: Rima Andujar MD 06/29/2018 12:23 AM ACCOUNTING RECONCILIATION CLERK Due to temporary technical issues with the PACS/Fluency reporting system, reports are being signed by the in house radiologist as a courtesy to ensure prompt reporting. The interpreting radiologist is f ully responsible for the content of the report.
== END 2018-06-29 01:16 | disposition short-term general hospital (02) ==
LOC: ER 20:40
DX: I63.9 Cerebral infarction, unspecified (principal); G35 Multiple sclerosis; D64.9 Anemia, unspecified; Z72.0 Tobacco use; Z71.6 Tobacco abuse counseling; C73 Malignant neoplasm of thyroid gland; I10 Essential (primary) hypertension; F32.9 Major depressive disorder, single episode, unspecified; J45.909 Unspecified asthma, uncomplicated; J44.9 Chronic obstructive pulmonary disease, unspecified; Z88.2 Allergy status to sulfonamides
CPT/HCPCS: 96365; 93005; 87088; 85025; 87086; 80048; 36415; 83735; 85610; 82962; 80076; 85652; 81003; 84484; 83880; 86140; 70496; 70450; 71045; 99285; 96366; Q9967; J7030